=== PATIENT | female | born 1930 | race Caucasian/White ===

== ENCOUNTER 2016-10-18 09:20 | Emergency (ER) | payer MEDICARE, OTHER ==
[~2016-10-18] VITALS: Ht 160 cm; Wt 64.0 kg
[~2016-10-18 09:20] MED LIST: ALBUTEROL S2.5 MG/.5 IN; ALBUTEROL SUL0.083 % IN; ALPRAZOLAM0.25 M1 PO; ANTIVERT12.5 MG PO; BUSPAR15 MG PO; BUSPIRONE7.5 MG OR; CALCIUM D- OR; CYCLOBENZAPR10 MG PO; CYMBALTA60 MG PO; DARVOCET PO; DIOVAN80 MG PO; DOXYCYCL HYC100 MG PO; E.E.S. 400400 MG OR; FLEXERIL10 MG PO; FLEXERIL5 M1 PO; HYCODAN1 ML PO; LANSOPRAZOLE15 MG PO; LEXAPRO10 MG PO; MECLIZINE12.5 MG PO; MIACALCIN IJ; MIACALCIN200 MG/ACT; MUCINEX600 MG PO; NAMENDA10 MG PO; NITROGLYCER0.4 M1 SL; NORVASC PO; NYSTATIN100000 M1 PO; OXYCODONE10 M1 OR; PERCOCET 5/325M1 TAB OR; PLAVIX75 MG PO; PREDNISONE10 MG PO; PREVACID30 M1 PO; PREVACID30 M3 PO; SINGULAIR 10 MG10 MG PO; SINGULAIR10 MG PO; SPIRIVA IN; SYMBICORT 80-4.5MCG IN; XANAX0.25 MG PO; ZITHROMAX250 MG PO; ZOLPIDEM5 M1 PO; [UNRECOGNIZED DRUG - OTHER] OR
[2016-10-18 10:19] LABS: HEMATOCRIT 38.4 % (37.0-47.0); HEMOGLOBIN 12.4 g/dl (12.0-16.0); IMMATURE GRANULOCYTES 0.4 % (0.0-1.0); MEAN CELL VOLUME 93.4 fL CALC (80.0-100.0); MEAN CORPUSCULAR HGB 30.2 pG CALC (26.0-32.0); MEAN CORPUSCULAR HGB CONC 32.3 g/L CALC (32.0-36.0); NEUT# 4.72 thou/uL (2.00-7.15); RED BLOOD COUNT 4.11 mill/uL (4.20-5.60); RED CELL DISTRI WIDTH 13.5 % (11.5-15.5)
[2016-10-18 10:27] LABS: ALKALINE PHOSPHATASE 75 u/l (38-126); ANION GAP 13 (6-22 (CALC)); BILIRUBIN, TOTAL 0.4 mg/dL (0.0-1.4); BUN 13 mg/dL (8-23); BUN/CREATININE RATIO 19 (12-20 (CALC)); CALCIUM 8.8 mg/dL (8.4-10.2); CARBON DIOXIDE 27 mmol/l (22-30); CHLORIDE 97 mmol/l (95-108); CREATININE 0.7 mg/dL (0.5-1.0); GFR > 60 ML/MIN (>=60 (CALC)); GFR FOR AFR.AMER. > 60 ML/MIN (>=60 (CALC)); GLUCOSE 105 mg/dL (82-115); POTASSIUM 4.2 mmol/l (3.5-5.1); SGOT/AST 22 u/l (9-36); SGPT/ALT 20 u/l (11-66); SODIUM 132 mmol/l (137-146); TOTAL PROTEIN 7.1 g/dL (6.3-8.2)
[2016-10-18 10:40] LABS: MYOGLOBIN 45 ng/mL (0 - 62)
[2016-10-18] MEDS ORDERED: MEDDOSEPAK PO (10:59)
[2016-10-18] MEDS ORDERED: ZPAK PO (10:59)
[2016-10-18 11:09] VITALS: BP 141/95
== END 2016-10-18 12:15 | disposition home or self-care (01) ==
LOC: ED 09:20
PROVIDERS: Emergency Medicine
DX: J45.901 Unspecified asthma with (acute) exacerbation (principal); J06.9 Acute upper respiratory infection, unspecified; R06.02 Shortness of breath; R94.31 Abnormal electrocardiogram [ECG] [EKG]; I10 Essential (primary) hypertension

== ENCOUNTER 2017-04-04 23:20 | Emergency (ER) | payer MEDICARE, OTHER ==
[~2017-04-04] VITALS: Ht 160 cm; Wt 65.9 kg
[~2017-04-04 23:20] MED LIST changes: +MEDDOSEPAK PO; +ZPAK PO
[2017-04-04] MEDS ORDERED: METOPROL TAR25 M1 PO (23:38)
[2017-04-04] MEDS ORDERED: ZOLPIDEM TARTRA10 MG PO (23:39)
[2017-04-05 01:00] VITALS: BP 159/73
== END 2017-04-05 01:00 | disposition home or self-care (01) ==
LOC: ED 23:20
PROC: 0HQLXZZ Repair Left Lower Leg Skin, External Approach (ICD-10-PCS; principal; 2017-04-05)
DX: S91.012A Laceration without foreign body, left ankle, initial encounter (principal); W22.8XXA Striking against or struck by other objects, initial encounter; Y93.89 Activity, other specified; Y92.512 Supermarket, store or market as the place of occurrence of the external cause

== ENCOUNTER 2017-12-16 10:00 | Emergency (ER) | payer MEDICARE, OTHER ==
[~2017-12-16] VITALS: Ht 160 cm; Wt 100.0 kg
[~2017-12-16 10:00] MED LIST changes: +METOPROL TAR25 M1 PO; +ZOLPIDEM TARTRA10 MG PO
[2017-12-16] MEDS ORDERED: OMEPRAZOLE10 MG PO (10:31)
[2017-12-16] MEDS ORDERED: DIOVAN80 MG PO (10:32)
[2017-12-16] MEDS ORDERED: BUSPIRONE5 MG PO (10:32)
[2017-12-16 11:05] LABS: ALBUMIN 4.3 g/dL (3.2-5.0); ALKALINE PHOSPHATASE 53 u/l (38-126); ANION GAP 15 (6-22 (CALC)); BILIRUBIN, TOTAL 0.5 mg/dL (0.0-1.4); BUN 15 mg/dL (8-23); BUN/CREATININE RATIO 23 (12-20 (CALC)); CARBON DIOXIDE 26 mmol/l (22-30); CHLORIDE 97 mmol/l (95-108); CREATININE 0.6 mg/dL (0.5-1.0); GFR > 60 ML/MIN (>=60 (CALC)); GFR FOR AFR.AMER. > 60 ML/MIN (>=60 (CALC)); LIPASE 41 u/l (23-300); POTASSIUM 4.5 mmol/l (3.5-5.1); SGPT/ALT 33 u/l (11-66); SODIUM 133 mmol/l (137-146); TOTAL PROTEIN 7.5 g/dL (6.3-8.2)
[2017-12-16 11:06] LABS: SGOT/AST 53 u/l (9-36)
[2017-12-16 11:07] LABS: HEMATOCRIT 36.7 % (37.0-47.0); HEMOGLOBIN 11.3 g/dl (12.0-16.0); IMMATURE GRANULOCYTES 0.7 % (0.0-1.0); MEAN CELL VOLUME 81.7 fL CALC (80.0-100.0); MEAN CORPUSCULAR HGB 25.2 pG CALC (26.0-32.0); MEAN CORPUSCULAR HGB CONC 30.8 g/L CALC (32.0-36.0); NEUT# 4.92 thou/uL (2.00-7.15); RED BLOOD COUNT 4.49 mill/uL (4.20-5.60); RED CELL DISTRI WIDTH 16.7 % (11.5-15.5)
[2017-12-16 12:06] LABS: URINE BILIRUBIN - DIPSTICK NEGATIVE (NEGATIVE); URINE BLOOD DIPSTICK NEGATIVE (NEGATIVE); URINE COLOR YELLOW; URINE GLUCOSE - DIPSTICK NEGATIVE (NEGATIVE); URINE KETONE NEGATIVE (NEGATIVE); URINE LEUK ESTERASE NEGATIVE (NEGATIVE); URINE NITRITE - DIPSTICK NEGATIVE (Negative); URINE PH 7.5 (4.5-8.0); URINE PROTEIN - DIPSTICK NEGATIVE (NEG-TRACE); URINE UROBILINOGEN - DIPSTICK 0.2 E.U./dL (0.2)
[2017-12-16 12:07] LABS: URINE CLARITY CLEAR
[2017-12-16] MEDS ORDERED: BENTYL10 MG PO (12:42)
[2017-12-16 13:08] VITALS: BP 184/84
== END 2017-12-16 13:09 | disposition home or self-care (01) ==
LOC: ED 10:00
PROVIDERS: Emergency Medicine
DX: R10.32 Left lower quadrant pain (principal); I11.0 Hypertensive heart disease with heart failure; I50.9 Heart failure, unspecified; J45.909 Unspecified asthma, uncomplicated; Z86.73 Personal history of transient ischemic attack (TIA), and cerebral infarction without residual deficits; R94.31 Abnormal electrocardiogram [ECG] [EKG]

== ENCOUNTER 2018-04-14 11:02 | Emergency (ER) | payer MEDICARE, OTHER ==
[~2018-04-14] VITALS: Ht 160 cm; Wt 61.4 kg
[~2018-04-14 11:02] MED LIST changes: +BENTYL10 MG PO; +BUSPIRONE5 MG PO; +OMEPRAZOLE10 MG PO
[2018-04-14] MEDS ORDERED: Levaquin PO (13:30)
[2018-04-14 13:48] VITALS: BP 166/72
== END 2018-04-14 13:48 | disposition home or self-care (01) ==
LOC: ED 11:02
PROC: 0HQLXZZ Repair Left Lower Leg Skin, External Approach (ICD-10-PCS; principal; 2018-04-14)
DX: S81.812A Laceration without foreign body, left lower leg, initial encounter (principal); I11.0 Hypertensive heart disease with heart failure; I50.9 Heart failure, unspecified; J45.909 Unspecified asthma, uncomplicated; W22.8XXA Striking against or struck by other objects, initial encounter; Y92.008 Other place in unspecified non-institutional (private) residence as the place of occurrence of the external cause; Z86.73 Personal history of transient ischemic attack (TIA), and cerebral infarction without residual deficits

== ENCOUNTER → 2018-08-18 | Outpatient (REF) | payer MEDICARE, OTHER ==
[~2018-08-18] MED LIST changes: +Levaquin PO
[2018-08-18 08:43] LABS: URINE BILIRUBIN - DIPSTICK NEGATIVE (NEGATIVE); URINE BLOOD DIPSTICK NEGATIVE (NEGATIVE); URINE COLOR YELLOW; URINE GLUCOSE - DIPSTICK NEGATIVE (NEGATIVE); URINE KETONE NEGATIVE (NEGATIVE); URINE LEUK ESTERASE NEGATIVE (NEGATIVE); URINE NITRITE - DIPSTICK NEGATIVE (Negative); URINE PH 5.5 (4.5-8.0); URINE PROTEIN - DIPSTICK NEGATIVE (NEG-TRACE); URINE UROBILINOGEN - DIPSTICK 0.2 E.U./dL (0.2)
[2018-08-18 09:14] LABS: HEMATOCRIT 32.5 % (37.0-47.0); HEMOGLOBIN 9.5 g/dl (12.0-16.0); MEAN CELL VOLUME 80.6 fL CALC (80.0-100.0); MEAN CORPUSCULAR HGB 23.6 pG CALC (26.0-32.0); MEAN CORPUSCULAR HGB CONC 29.2 g/L CALC (32.0-36.0); RED BLOOD COUNT 4.03 mill/uL (4.20-5.60); RED CELL DISTRI WIDTH 15.9 % (11.5-15.5)
[2018-08-18 09:45] LABS: ANION GAP 14 (6-22 (CALC)); BUN 12 mg/dL (8-23); BUN/CREATININE RATIO 17 (12-20 (CALC)); CALCULATED LDLCHOLESTEROL 107 mg/dL (62-129 (CALC)); CARBON DIOXIDE 27 mmol/l (22-30); CHLORIDE 96 mmol/l (95-108); CHOLESTEROL HDL RATIO 4.1 (<4.4 (CALC)); CREATININE 0.7 mg/dL (0.5-1.0); GFR > 60 ML/MIN (>=60 (CALC)); GFR FOR AFR.AMER. > 60 ML/MIN (>=60 (CALC)); HDL CHOLESTEROL 44 mg/dL (>=40); POTASSIUM 4.2 mmol/l (3.5-5.1); SODIUM 133 mmol/l (137-146); TOTAL CHOLESTEROL 180 mg/dl (0-199); TOTAL TRIGLYCERIDES 148 mg/dl (30-149); VLDL CHOLESTROL 30 mg/dl (0-48 (CALC))
[2018-08-18 10:12] LABS: TSH, 3RD GENERATION 4.12 uIU/mL (0.47 - 4.68)
== END | disposition home or self-care (01) ==
LOC: LAB 08:09
PROVIDERS: ATTEND Nurse Practitioner Family
DX: I10 Essential (primary) hypertension (principal); R06.02 Shortness of breath